=== PATIENT | female | born 1990 | race Caucasian/White ===

== ENCOUNTER 2016-09-24 08:54 | Emergency (ER) | payer OTHER ==
[~2016-09-24] VITALS: Ht 160 cm; Wt 90.7 kg
[~2016-09-24 08:54] MED LIST: MEDR150D3 IM
[2016-09-24 09:10] VITALS: BP 133/86
[2016-09-24 10:20] LABS: OBC FLU VALID
--- NOTE | 2016-09-24 10:25 | RAD ---
EXAM: Chest 2 views. HISTORY: Cough and congestion. COMPARISON: 12/15/2008. FINDINGS: Frontal and lateral views of the chest are obtained. There are no confluent infiltrates. There is no pneumothorax or pleural effusion. The heart is not enlarged. IMPRESSION: 1. No confluent infiltrates.
[2016-09-24] MEDS ORDERED: FLUT9.9S NS (11:30)
[2016-09-24] MEDS ORDERED: PROAIR RESPICL90 MCG IH (11:30)
[2016-09-24] MEDS ORDERED: BENZ100C PO (11:30)
[2016-09-24] MEDS ORDERED: METH4TAB2 PO (11:30)
--- NOTE | 2016-09-24 11:31 | PHYS DOC ---
Past Medical History Past Medical History: No Pertinent History Past Surgical History: Other Additional Past Surgical Histo: abd lap, d & c Alcohol Use: None Drug Use: None Adult General Chief Complaint Chief Complaint: COUGH HPI HPI Patient is a 26 year old female who is in the ED with 2 other family members with a productive cough and nasal congestion for 2 weeks. Patient states she was given Augmentin which did not help with her symptoms. She states she has taken prednisone before for same complaints which helped. Denies any history of smoking. Review of Systems Review of Systems Constitutional: Denies fever or chills [] Eyes: Denies change in visual acuity, redness, or eye pain [] HENT: nasal congestion Respiratory: cough Cardiovascular: No additional information not addressed in HPI [] GI: Denies abdominal pain, nausea, vomiting, bloody stools or diarrhea [] : Denies dysuria or hematuria [] Musculoskeletal: Denies back pain or joint pain [] Integument: Denies rash or skin lesions [] Neurologic: Denies headache, focal weakness or sensory changes [] Endocrine: Denies polyuria or polydipsia [] Allergies Allergies Allergies Coded Allergies Type Severity Reaction Last Updated Verified No Known Drug Allergies 11/17/14 No Physical Exam Physical Exam Constitutional: Well developed, well nourished, no acute distress, non-toxic appearance. [] HENT: Normocephalic, atraumatic, bilateral external ears normal, oropharynx moist, no oral exudates, nose normal. [] Eyes: PERRLA, EOMI, conjunctiva normal, no discharge. [] Neck: Normal range of motion, no tenderness, supple, no stridor. [] Cardiovascular:Heart rate regular rhythm, no murmur [] Lungs & Thorax: Bilateral breath sounds clear to auscultation [] Abdomen: Bowel sounds normal, soft, no tenderness, no masses, no pulsatile masses. [] Skin: Warm, dry, no erythema, no rash. [] Back: No tenderness, no CVA tenderness. [] Extremities: No tenderness, no cyanosis, no clubbing, ROM intact, no edema. [] Neurologic: Alert and oriented X 3, normal motor function, normal sensory function, no focal deficits noted. [] Psychologic: Affect normal, judgement normal, mood normal. [] Current Patient Data Vital Signs Vital Signs Date Time Temp Pulse Resp B/P Pulse Ox O2 Delivery O2 Flow Rate FiO2 09/24/16 09:10 124 22 97 Room Air Lab Values Laboratory Tests Test 09/24/16 09:45 Influenza Type A Antigen Negative (NEGATIVE) Influenza Type B Antigen Negative (NEGATIVE) EKG EKG [] Radiology/Procedures Radiology/Procedures [] Course & Med Decision Making Course & Med Decision Making Pertinent Labs and Imaging studies reviewed. (See chart for details) Patient is in the ED with symptoms of viral bronchitis. Chest x-ray was negative for any acute findings as interpreted by radiologist. Negative rapid strep, negative influenza A or B. Discharged with albuterol inhaler prednisone for 5 days and Tessalon Perles. Follow-up with PCP in one week. Dragon Disclaimer [facility] [employer] Disclaimer This electronic medical record was generated, in whole or in part, using a voice recognition dictation system. Departure Departure Impression: Primary Impression: Acute bronchitis Additional Impression: Upper respiratory infection Disposition: HOME, SELF-CARE Condition: STABLE Referrals: NO PCP (PCP) Follow-up with your doctor in one week Patient Instructions: Acute Bronchitis Additional Instructions: You were seen with symptoms consistent with an acute bronchitis and upper respiratory infection. Use the prescribed medicines as ordered. Follow-up with your doctor in one week. Come back to the ED for worsening or concerning symptoms. Scripts Benzonatate (Tessalon Perle)100 Mg Capsule1 Cap PO TID #30 CAP Prov:YAJAIRAADL FACILITIES AND GROUNDS DIRECTOR 09/24/16 Fluticasone Propionate (Flonase Allergy Relief)9.9 Ml [place].susp2 Sprays NS DAILY #1 BOTTLE Prov:MUTUNGADL [employer] AND [employer]OUNDS DIRECTOR 09/24/16 Methylprednisolone (Medrol)4 Mg Tab.ds.pk1 Pkg PO UD #1 PKG Prov:MUTUNGADL [employer] AND [employer]DS DIRECTOR 09/24/16 Albuterol Sulfate (Proair Respiclick)90 Mcg Aer.pow.ba1 Puff IH PRN Q6HRS PRN SHORTNESS OF BREATH #1 INHALER Prov:MUTUNGADL [employer] AND [employer]DS DIRECTOR 09/24/16 Problem Qualifiers Primary Impression: Acute bronchitis Bronchitis organism: unspecified organism Qualified Code: J20.9 - Acute bronchitis, unspecified Additional Impression: Upper respiratory infection URI type: unspecified URI Qualified Code: J06.9 - Acute upper respiratory infection, unspecified MUTUNGADL [employer] AND [employer]DS DIRECTOR Sep 24, 2016 11:30
[2016-09-25 08:58] LABS: NEGATIVE OBC STREP NEG; POSITIVE OBC STREP POS
== END 2016-09-24 11:35 | disposition home or self-care (01) ==
LOC: ER 08:54
DX: J20.9 Acute bronchitis, unspecified (principal); J06.9 Acute upper respiratory infection, unspecified
CPT/HCPCS: 71020; 87070; 87804; 87880; 99285

== ENCOUNTER 2016-11-09 12:59 | Emergency (ER) | payer OTHER ==
[~2016-11-09 12:59] MED LIST changes: +BENZ100C PO; +FLUT9.9S NS; +METH4TAB2 PO; +PROAIR RESPICL90 MCG IH
[2016-11-09 13:10] VITALS: BP 129/72
--- NOTE | 2016-11-09 13:45 | RAD ---
Indication injury. Pain. AP oblique and lateral views of the left ankle were obtained. No bony abnormality is seen
--- NOTE | 2016-11-09 13:51 | PHYS DOC ---
Past Medical History Past Medical History: No Pertinent History Past Surgical History: Other Additional Past Surgical Histo: d/c Alcohol Use: None Drug Use: None Adult General Chief Complaint Chief Complaint: ANKLE PROBLEM HPI HPI Patient is a 26 year old female presents to the emergency department stating that she walked outside today and rolled her left ankle and foot. She states that she has having pain along the fifth meta-tarsal area. She states that she tried to work through the day since her children were out of school and the pain became increasingly worse. She states that she tried to take her boot off in the swelling had occurred significantly. She denies any numbness or tingling into her foot. She does state that she has increased pain with trying to bear weight she has not taken anything for pain and discomfort. Patient does state that she drove herself here to the emergency department. Review of Systems Review of Systems Constitutional: Denies fever or chills [] Eyes: Denies change in visual acuity, redness, or eye pain [] HENT: Denies nasal congestion or sore throat [] Respiratory: Denies cough or shortness of breath [] Cardiovascular: No additional information not addressed in HPI [] GI: Denies abdominal pain, nausea, vomiting, bloody stools or diarrhea [] : Denies dysuria or hematuria [] Musculoskeletal: Denies back pain. C/o left ankle and foot pain Integument: Denies rash or skin lesions [] Neurologic: Denies headache, focal weakness or sensory changes [] Current Medications Current Medications Current Medications Medications (Trade) Dose Ordered Sig/Juvenal Start Time Stop Time Status Last Admin Dose Admin Ibuprofen (Motrin) 800 mg 1X ONCE 11/09/16 14:30 11/09/16 14:31 11/09/16 14:27 800 MG Allergies Allergies Allergies Coded Allergies Type Severity Reaction Last Updated Verified No Known Drug Allergies 11/17/14 No Physical Exam Physical Exam Constitutional: Well developed, well nourished, no acute distress, non-toxic appearance. [] HENT: Normocephalic, atraumatic, bilateral external ears normal, oropharynx moist, no oral exudates, nose normal. [] Eyes: PERRLA, EOMI, conjunctiva normal, no discharge. [] Neck: Normal range of motion, no tenderness, supple, no stridor. [] Cardiovascular:Heart rate regular rhythm, no murmur [] Lungs & Thorax: Bilateral breath sounds clear to auscultation [] Skin: Warm, dry, no erythema, no rash. [] Back: No tenderness Extremities: Left ankle and fifth metatarsal tenderness, no cyanosis, no clubbing, ROM intact, no edema. Patient was significant swelling noted peripheral pulses 2+ cap refill brisk less than 2 seconds. Patient is able to move toes without difficulty. No bruising or discoloration noted. Neurologic: Alert and oriented X 3, normal motor function, normal sensory function, no focal deficits noted. [] Psychologic: Affect normal, judgement normal, mood normal. [] Current Patient Data Vital Signs Vital Signs Date Time Temp Pulse Resp B/P Pulse Ox O2 Delivery O2 Flow Rate FiO2 11/09/16 13:10 98.0 78 18 98 Room Air 98.0 EKG EKG [] Radiology/Procedures Radiology/Procedures [][address] [id number] IMAGING REPORT Signed PATIENT: FRANCISCA KING ACCOUNT: [id number] : 1990 LOCATION: ER AGE: 26 SEX: F EXAM STATUS: PRE ER ORD. PHYSICIAN: LEONIDES DEL ANGEL APRN REASON: pain after injury PROCEDURE: ANKLE LEFT 3V Indication injury. Pain. AP oblique and lateral views of the left ankle were obtained. No bony abnormality is seen DICTATED and SIGNED BY: MARLEN CHACON MD DATE: 11/09/16 1340 CC: LEONIDES DEL ANGEL APRN; NO PCP ~ [address] [id number] IMAGING REPORT Signed PATIENT: FRANCISCA KING ACCOUNT: [id number] : 1990 LOCATION: ER AGE: 26 SEX: F EXAM STATUS: REG ER ORD. PHYSICIAN: LEONIDES DEL ANGEL APRN REASON: rolled left foot PROCEDURE: FOOT LEFT 3V Left foot, 3 views, 11/09/2016: History: Fall, foot injury No fracture or dislocation is identified. There is mild subcutaneous edema. IMPRESSION: No acute bony abnormality is detected. DICTATED and SIGNED BY: MAY CHEN MD DATE: 11/09/16 1421 CC: LEONIDES DEL ANGEL APRN; NO PCP ~ Course & Med Decision Making Course & Med Decision Making Pertinent Labs and Imaging studies reviewed. (See chart for details) [place] negative for any fractures or abnormalities. Patient will be placed in a short leg splint with crutches. Recommendations to follow-up with orthopedic next week. She'll be provided with orthopedic name and number. Recommended ibuprofen 800 mg every 8 hours with food stop taking few develop an upset stomach. Ice packs on 20 minutes off 20 minutes several times a day elevation as much as possible. Patient will be discharged home in stable condition signs and symptoms to return back to emergency department been provided. [] Dragon Disclaimer Dragon Disclaimer This electronic medical record was generated, in whole or in part, using a voice recognition dictation system. Departure Departure Impression: Primary Impression: Sprain of foot, left Additional Impression: Sprain of ankle, left Disposition: 01 HOME, SELF-CARE Condition: STABLE Referrals: NO PCP (PCP) TOMMY OSORIO II, MD Patient Instructions: Ankle Sprain, [id number], Crutch Use, Sllk-[id number], Foot Sprain-Brief, Splint Care, [id number] Additional Instructions: Home to rest Medication as prescribed Ibuprofen 800 mg every 8 hours with food, stop taking if you develop upset stomach Ice packs on 20 minutes and off 20 minutes several times a day Elevation as much as possible Keep the splint clean and dry. Do NOT remove splint until you followup with orthopedic Use the crutches for ambulation. No weight bearing to the left foot Followup with orthopedic in 7-10 days Return to emergency department as needed for signs and symptoms that become worse. Splinting Splinting : Location: left ankle/foot Pre-Made Type: Hand-Made Type: orthoglass Splint: posterior short leg Pre-Proc Neuro Vasc Exam: normal Post-Proc Neuro Vasc Exam: normal Problem Qualifiers LEONIDES DEL ANGEL APRN Nov 09, 2016 13:51
--- NOTE | 2016-11-09 14:24 | RAD ---
Left foot, 3 views, 11/09/2016: History: Fall, foot injury No fracture or dislocation is identified. There is mild subcutaneous edema. IMPRESSION: No acute bony abnormality is detected.
[2016-11-09] MEDS ORDERED: IBUPROFEN 800 MG TABLET. PO ONE (14:30)
== END 2016-11-09 14:30 | disposition home or self-care (01) ==
LOC: ER 12:59
DX: S93.602A Unspecified sprain of left foot, initial encounter (principal); S93.402A Sprain of unspecified ligament of left ankle, initial encounter; X58.XXXA Exposure to other specified factors, initial encounter; Y93.89 Activity, other specified; Y92.89 Other specified places as the place of occurrence of the external cause; Y99.8 Other external cause status
CPT/HCPCS: 29515; 73610; 73630; 99284-25

== ENCOUNTER 2017-04-21 08:39 | Emergency (ER) | payer OTHER ==
[~2017-04-21] VITALS: Ht 160 cm; Wt 92.5 kg
[2017-04-21 08:45] VITALS: BP 117/94
[2017-04-21] MEDS ORDERED: IPRATRPIUM/ALBUTEROL 0.5/2.5MG 3 ML NEBU. NEB ONE (09:00)
[2017-04-21] MEDS ORDERED: AMOX1TAB61 PO (09:02)
[2017-04-21] MEDS ORDERED: PROAIR HFA8.5 GM INH (09:02)
[2017-04-21] MEDS ORDERED: PRED20TA PO (09:02)
[2017-04-21] MEDS ORDERED: BENZ100C PO (09:02)
--- NOTE | 2017-04-21 09:02 | PHYS DOC ---
Past Medical History Past Medical History: No Pertinent History Past Surgical History: Other Additional Past Surgical Histo: d/c Alcohol Use: None Drug Use: None Adult General Chief Complaint Chief Complaint: COUGH HPI HPI Patient is a 26 year old female presents to the emergency department with a history of cough and chest congestion for the last 3 weeks. Patient states she has had increase chest discomfort with coughing. She states she has tried over the counter medications without relief. Review of Systems Review of Systems Constitutional: Denies fever or chills [] Eyes: Denies change in visual acuity, redness, or eye pain [] HENT: Denies nasal congestion or sore throat [] Respiratory: cough denies shortness of breath [] Cardiovascular: No additional information not addressed in HPI [] GI: Denies abdominal pain, nausea, vomiting, bloody stools or diarrhea [] : Denies dysuria or hematuria [] Musculoskeletal: Denies back pain or joint pain [] Integument: Denies rash or skin lesions [] Neurologic: Denies headache, focal weakness or sensory changes [] Endocrine: Denies polyuria or polydipsia [] Current Medications Current Medications Current Medications Medications (Trade) Dose Ordered Sig/Juvenal Start Time Stop Time Status Last Admin Dose Admin Albuterol/ Ipratropium (Duoneb) 3 ml 1X ONCE 04/21/17 09:00 04/21/17 09:01 DC 04/21/17 08:57 3 ML Ibuprofen (Motrin) 800 mg 1X ONCE 04/21/17 09:15 04/21/17 09:16 DC 04/21/17 09:19 800 MG Allergies Allergies Allergies Coded Allergies Type Severity Reaction Last Updated Verified No Known Drug Allergies 04/21/17 No Physical Exam Physical Exam Constitutional: Well developed, well nourished, no acute distress, non-toxic appearance. [] HENT: Normocephalic, atraumatic, bilateral external ears normal, oropharynx moist, no oral exudates, nose normal. [] Eyes: PERRLA, EOMI, conjunctiva normal, no discharge. [] Neck: Normal range of motion, no tenderness, supple, no stridor. [] Cardiovascular:Heart rate regular rhythm, no murmur [] Lungs & Thorax: Bilateral breath sounds clear to auscultation Patient with nonproductive cough noted. Skin: Warm, dry, no erythema, no rash. [] Extremities: No tenderness, no cyanosis, no clubbing, ROM intact, no edema. [] Neurologic: Alert and oriented X 3, normal motor function, normal sensory function, no focal deficits noted. [] Psychologic: Affect normal, judgement normal, mood normal. [] Current Patient Data Vital Signs Vital Signs Date Time Temp Pulse Resp B/P (MAP) Pulse Ox O2 Delivery O2 Flow Rate FiO2 04/21/17 09:00 Room Air 04/21/17 08:45 98.5 112 20 97 98.5 EKG EKG [] Radiology/Procedures Radiology/Procedures [] Course & Med Decision Making Course & Med Decision Making Pertinent Labs and Imaging studies reviewed. (See chart for details) Patient 26-year-old female who presents with a cough and congestion in which she states that she vomits when she coughs. She states this is been going on for the last 3 weeks. She is taken [id number] medications with no relief. 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 She denies fever, chills or any nausea vomiting. She'll be placed on prednisone, antibiotics at discharge. She'll be provided with Tessalon Perles and prednisone. Patient agrees with discharge instructions, treatment regimens and follow-up recommendations. She is provided with a respiratory treatment here in the emergency department. Patient was recommended to follow-up the primary care physician in the next 5-7 days. Patient agrees with discharge instructions, treatment regimens and follow-up recommendations. All signs and symptoms to return back to emergency department as been provided. Patient will be discharged home in stable condition. All questions and concerns been answered at patient's bedside. [] Dragon Disclaimer Dragon Disclaimer This electronic medical record was generated, in whole or in part, using a voice recognition dictation system. Departure Departure Impression: Primary Impression: Upper respiratory infection Disposition: 01 HOME, SELF-CARE Condition: STABLE Referrals: NO PCP (PCP) Patient Instructions: Upper Respiratory Infection, Adult, [id number] Additional Instructions: Activity as tolerated Medication as prescribed Tylenol or Ibuprofen for fever, chills or generalized body aches Drink plenty of fluids such as water, gatorade or propel Followup with primary care provider in 5-7 days Return to emergency department as needed for signs and symptoms that become worse. Scripts Albuterol Sulfate (PROAIR HFA INHALER) 8.5 Gm Hfa.aer.ad 1 PUFF INH PRN Q6HRS Y for SHORTNESS OF BREATH, #1 INHALER 0 Refills Prov: LEONIDES DEL ANGEL APRN 04/21/17 Benzonatate (TESSALON PERLE) 100 Mg Capsule 1 CAP PO TID, #30 CAP Prov: LEONIDES DEL ANGEL APRN 04/21/17 Amoxicillin/Potassium Clav (AUGMENTIN 875-125 TABLET) 1 Each Tablet 1 TAB PO BID, #20 TAB Prov: LEONIDES DEL ANGEL APRN 04/21/17 Prednisone (PREDNISONE) 20 Mg Tablet 40 MG PO DAILY for 7 Days, #14 TAB Prov: LEONIDES DEL ANGEL APRN 04/21/17 Problem Qualifiers Primary Impression: Upper respiratory infection URI type: unspecified URI Qualified Codes: J06.9 - Acute upper respiratory infection, unspecified LEONIDES DEL ANGEL APRN Apr 21, 2017 09:02
[2017-04-21] MEDS ORDERED: IBUPROFEN 800 MG TABLET. PO ONE (09:15)
== END 2017-04-21 09:25 | disposition home or self-care (01) ==
LOC: ER 08:39
DX: J06.9 Acute upper respiratory infection, unspecified (principal)
CPT/HCPCS: 94250; 94640; 99283; J7620

== ENCOUNTER 2018-06-29 05:31 | Emergency (ER) | payer OTHER ==
[~2018-06-29] VITALS: Ht 160 cm; Wt 86.2 kg
[~2018-06-29 05:31] MED LIST changes: +AMOX1TAB61 PO; +PRED20TA PO; +PROAIR HFA8.5 GM INH
[2018-06-29 05:35] VITALS: BP 102/63
[2018-06-29] MEDS: DEXAMETHASONE 4 MG TABLET PO ONE (06:24)
[2018-06-29] MEDS: TETRACAINE 0.5% OPHTH SOLUTION 4ML BOTTLE. OS ONE (06:30)
[2018-06-29] MEDS: ERYTHROMYCIN 0.5% OPHTH OINTMENT 1GM TUBE. OS ONE (06:31)
--- NOTE | 2018-06-29 06:35 | PHYS DOC ---
Past Medical History Past Medical History: No Pertinent History Past Surgical History: No Surgical History, Other Additional Past Surgical Histo: d/c Alcohol Use: Rarely Drug Use: None Adult General Chief Complaint Chief Complaint: SORE THROAT HPI HPI This is a 28-year-old female presenting to the ED with 3 days of sore throat and sinus congestion. Patient states she has been experiencing similar symptoms intermittently over the past month with no relief from kafv-tzo-cjwabza medications. She has also noticed left eye redness and clear discharge that began after scratching her eye with her finger. Patient denies fevers, chills, cough, rhinorrhea, ear pain, pain with eye movement. Review of Systems Review of Systems Constitutional: Denies fever or chills [] Eyes: Reports left eye redness & clear discharge; Denies change in visual acuity , or pain with EOM [] HENT: Reports nasal congestion, sore throat; denies rhinorrhea [] Respiratory: Denies cough or shortness of breath [] Cardiovascular: Denies chest pain GI: Denies abdominal pain, nausea, vomiting, bloody stools or diarrhea [] : Denies dysuria or hematuria [] Musculoskeletal: Denies back pain or joint pain [] Integument: Denies rash or skin lesions [] Neurologic: Denies headache, focal weakness or sensory changes [] Endocrine: Denies polyuria or polydipsia [] Complete systems were reviewed and found to be within normal limits, except as documented in this note. Family History Family History Noncontributory Current Medications Current Medications Current Medications Medications (Trade) Dose Ordered Sig/Juvenal Start Time Stop Time Status Last Admin Dose Admin Dexamethasone (Decadron) 10 mg 1X ONCE 06/29/18 07:00 06/29/18 07:00 DC 06/29/18 06:24 10 MG Erythromycin (Romycin) 0.25 inch 1X ONCE 06/29/18 07:00 06/29/18 07:00 DC 06/29/18 06:31 0.25 INCH Proparacaine HCl/ Fluorescein Sodium (Flucaine Eye Drops) 1 drop 1X ONCE 06/29/18 07:00 06/29/18 07:00 DC 06/29/18 06:36 1 DROP Tetracaine HCl (Tetracaine) 2 drop 1X ONCE 06/29/18 07:00 06/29/18 07:00 DC 06/29/18 06:30 2 DROP Allergies Allergies Allergies Coded Allergies Type Severity Reaction Last Updated Verified No Known Drug Allergies 04/21/17 No Physical Exam Physical Exam Constitutional: Well developed, well nourished, no acute distress, non-toxic appearance. [] HENT: Normocephalic, atraumatic, unable to visualize TMs bilaterally due to cerumen impaction, left tonsil with scant exudate, Eyes: PERRLA, EOMI, no pain with EOM, Left eye: conjunctival injection with clear discharge, slight edema of left upper eyelid, no periorbital erythema Neck: Normal range of motion, no tenderness, supple, no stridor, no LAD. [] Cardiovascular: Heart rate regular rhythm, no murmur [] Lungs & Thorax: Bilateral breath sounds clear to auscultation [] Abdomen: Bowel sounds normal, soft, no tenderness, no masses, no pulsatile masses. [] Skin: Warm, dry, no erythema, no rash. [] Back: No tenderness, no CVA tenderness. [] Extremities: No tenderness, no cyanosis, no clubbing, ROM intact, no edema. [] Neurologic: Alert and oriented X 3, normal motor function, normal sensory function, no focal deficits noted. [] Psychologic: Affect normal, judgement normal, mood normal. [] Current Patient Data Vital Signs Vital Signs Date Time Temp Pulse Resp B/P (MAP) Pulse Ox O2 Delivery O2 Flow Rate FiO2 06/29/18 05:35 97.7 115 12 102/63 (76) 98 Room Air 97.7 Lab Values Laboratory Tests Test 06/29/18 06:02 Group A Streptococcus Rapid Negative (NEGATIVE) EKG EKG [] Radiology/Procedures Radiology/Procedures [] Course & Med Decision Making Course & Med Decision Making Pertinent Labs and Imaging studies reviewed. (See chart for details) This is a 28-year-old female presenting with symptoms and exam findings consistent with viral URI and viral conjunctivitis. Because the patient states her eye redness began after scratching her eye, will rule out corneal abrasion with Wood's lamp. Dragon Disclaimer Dragon Disclaimer This electronic medical record was generated, in whole or in part, using a voice recognition dictation system. Departure Departure Impression: Primary Impression: Upper respiratory infection Additional Impression: Conjunctivitis Disposition: 01 HOME, SELF-CARE Condition: STABLE Referrals: NO PCP (PCP) Patient Instructions: Conjunctivitis (Viral and Bacterial), Upper Respiratory Infection, Adult, Ihaf-[id number] Scripts Erythromycin Base (Erythromycin) 1 Gm Oint...g. 0.5 INCH OP QID for 5 Days, MISC Prov: SAMMI ALEMAN DO 06/29/18 Problem Qualifiers Primary Impression: Upper respiratory infection URI type: unspecified URI Qualified Codes: J06.9 - Acute upper respiratory infection, unspecified Additional Impression: Conjunctivitis Conjunctivitis type: acute Acute conjunctivitis type: unspecified Laterality: left Qualified Codes: H10.32 - Unspecified acute conjunctivitis, left eye SAMMI ALEMAN DO Jun 29, 2018 06:35
[2018-06-29] MEDS: PROPARACAINE/FLUORESCEIN 0.5 ML OPHTH DROPS. OS ONE (06:36)
[2018-06-29] MEDS ORDERED: ERYT1OIN6 OP (06:54)
== END 2018-06-29 06:55 | disposition home or self-care (01) ==
LOC: ER 05:31
DX: J06.9 Acute upper respiratory infection, unspecified (principal); H10.32 Unspecified acute conjunctivitis, left eye
CPT/HCPCS: 87070; 87880; 99284; J8540

== ENCOUNTER 2019-03-30 08:14 | Emergency (ER) | payer MEDICAID, OTHER ==
[~2019-03-30] VITALS: Ht 160 cm; Wt 94.3 kg
[~2019-03-30 08:14] MED LIST changes: +ALBU2.5V8 INH; +ERYT1OIN6 OP; -PROAIR HFA8.5 GM INH
[2019-03-30 08:23] VITALS: BP 128/73
[2019-03-30] MEDS ORDERED: CIPR10DR AS (08:38)
[2019-03-30] MEDS ORDERED: AMOX500C PO (08:38)
--- NOTE | 2019-03-30 08:38 | PHYS DOC ---
Past Medical History Past Medical History: No Pertinent History Past Surgical History: No Surgical History, Other Additional Past Surgical Histo: d/c Alcohol Use: Rarely Drug Use: None Adult General Chief Complaint Chief Complaint: EARACHE/EAR PAIN HPI HPI Patient is a 28-year-old who presents to the emergency department for evaluation of left otalgia which began last night. She has not had any URI symptoms, and denies any headache or fever or drainage. She states she has chronic problems with her ears, primarily wax buildup. There are no alleviating or exacerbating factors to her symptoms. Review of Systems Review of Systems Constitutional: Denies fever or chills [] Eyes: Denies change in visual acuity, redness, or eye pain [] HENT: Denies nasal congestion or sore throat [] Respiratory: Denies cough or shortness of breath [] Neurologic: Denies headache, focal weakness or sensory changes [] Allergies Allergies Allergies Coded Allergies Type Severity Reaction Last Updated Verified No Known Drug Allergies 04/21/17 No Physical Exam Physical Exam PHYSICAL EXAM: CONSTITUTIONAL: Well developed, well nourished HEAD: normocephalic, atraumatic EENT: PERRL, EOMI. Conjunctivae normal color, sclerae non-icteric; moist mucous membranes. There is a large amount of cerumen in the auditory canals bilaterally, tympanic membrane is unable to be visualized. There is tragal tenderness to palpation of the left ear, without any mastoid tenderness to palpation, or other auricular abnormality. NECK: Supple, non-tender; no meningismus. LUNGS: Lungs CTA, breathing even and unlabored. Normal air movement. HEART: Regular rate and rhythm, no murmur SKIN: No rash; no diaphoresis NEURO: Alert; normal speech and cognition; CN's grossly intact; strength grossly intact without focal deficit. EKG EKG [] Radiology/Procedures Radiology/Procedures [] Course & Med Decision Making Course & Med Decision Making Discussed importance of ENT follow-up, and return precautions. Dragon Disclaimer Dragon Disclaimer This electronic medical record was generated, in whole or in part, using a voice recognition dictation system. Departure Departure Impression: Primary Impression: Otalgia Disposition: 01 HOME, SELF-CARE Condition: STABLE Referrals: TAIWO MCKENNA MD Patient Instructions: Otitis Externa, Otitis Media, Adult Scripts Ciprofloxacin/Hydrocortisone (CIPRO HC OTIC SUSPENSION) 10 Ml Drops.susp 3 DROP TID for 7 Days, #10 ML Prov: KYM PEREZ MD 03/30/19 Amoxicillin (AMOXICILLIN) 500 Mg Capsule 1 CAP PO TID, #30 CAP Prov: KYM PEREZ MD 03/30/19 KYM PEREZ MD Mar 30, 2019 08:38
== END 2019-03-30 09:03 | disposition home or self-care (01) ==
LOC: ER 08:14
DX: H92.02 Otalgia, left ear (principal)
CPT/HCPCS: 99283